=== PATIENT | male | born 1985 | race Hispanic/Latino ===

== ENCOUNTER 2022-04-29 02:47 | Emergency (ER) | payer MEDICAID ==
[2022-04-29] MEDS ORDERED: Sodium Chloride 0.9% 1000 ML 1,000 ML IV STA (03:28)
[2022-04-29] MEDS ORDERED: PROTONIX 40 MG IV IV ONE ×2 (03:28→03:36)
[2022-04-29] MEDS ORDERED: Zofran 4 MG/2 ML VIAL IV ONE (03:28)
[2022-04-29] MEDS ORDERED: MORPHINE SULFATE 4 MG INJ IV ONE (03:28)
--- NOTE | 2022-04-29 03:33 | ERPHSYRPT ---
- History of Present Illness Historian: insurance claims representative Exam Limitations: language barrier Patient Subjective Stated Complaint: ABD PAIN, NAUSEA, VOMITING, DIARRHEA, INDIGESTION (CHEST DISCOMFORT/FLUTTERING), DIZZINESS. Triage Nursing Assessment: Pt arrived via EMS, language barrier due to speaking Serbian, using a metal filer device. Pt c/o abd pain for a few weeks, but has gotten worse in the last few days. Pt has had nausea, vomiting and diarrhea, dizziness and his heart flutters when this all occurs. Pt states, "I was crying all night 2 nights ago from the pain". Abd soft and flat, active bs x4 quad, tender on palpation. Heart tones reg, lungs clear. Timing/Duration: week(s) (1-2 weeks) Activities at Onset: none Quality: cramping Abdominal Pain Onset Location: epigastric, periumbilical Pain Radiation: no radiation Severity of Pain-Max: moderate Severity of Pain-Current: moderate Modifying Factors: Improves With: nothing Associated Symptoms: loss of appetite, nausea, other (acid reflux) Previous symptoms: no prior history <BAKARI LEYVA - Last Filed: 04/29/22 06:49> <RICHARD RAYMOND - Last Filed: 04/29/22 08:02> - History of Present Illness Time Seen by Provider: 04/29/22 03:30 Physician History: c/o abd pain for a few weeks, but has gotten worse in the last few days. Pt has had nausea, vomiting and diarrhea, dizziness and his heart flutters when this all occurs. Pt states, "I was crying all night 2 nights ago from the pain". (AUTUMNLACEYBAKARI) Allergies/Adverse Reactions: No Known Drug Allergies Allergy (Unverified 04/29/22 03:15) Travel Risk - International Travel Have you traveled outside of the country in past 3 weeks: No - Coronavirus Screening Are you exhibiting any of the following symptoms?: Yes Symptoms: Vomiting/Diarrhea Close contact with a COVID-19 positive Pt in past 14-21 Days: No - Vaccine Status Have you recieved a Covid-19 vaccination: No <LACEY LEYVAYESH - Last Filed: 04/29/22 06:49> - Review of Systems Constitutional: No Fever, No Chills Eyes: No Symptoms Ears, Nose, & Throat: No Symptoms Respiratory: No Cough, No Dyspnea Cardiac: No Chest Pain, No Edema, No Syncope Abdominal/Gastrointestinal: Abdominal Pain, Nausea, Dysphagia, Appetite Changes, No Vomiting, No Diarrhea Genitourinary Symptoms: No Dysuria Musculoskeletal: No Back Pain, No Neck Pain Skin: No Rash Neurological: No Dizziness, No Focal Weakness, No Sensory Changes Psychological: No Symptoms Endocrine: No Symptoms All Other Systems: Reviewed and Negative <AUTUMN Filed: 04/29/22 06:49> - Past Medical History Pertinent Past Medical History: No - Past Surgical History Past Surgical History: No - Social History Smoking Status: Current every day smoker Exposure to second hand smoke: Yes <AUTUMN Filed: 04/29/22 06:49> - Physical Exam General Appearance: no apparent distress, alert Eye Exam: PERRL/EOMI, eyes nml inspection Ears, Nose, Throat Exam: normal ENT inspection, pharynx normal, moist mucous membranes Neck Exam: normal inspection, non-tender, supple, full range of motion Respiratory Exam: normal breath sounds, lungs clear, No respiratory distress Cardiovascular Exam: regular rate/rhythm, normal heart sounds Gastrointestinal/Abdomen Exam: soft, normal bowel sounds, tenderness (epigastric and periumbilical area), No mass Back Exam: normal inspection, normal range of motion, No CVA tenderness, No vertebral tenderness Extremity Exam: normal inspection, normal range of motion, pelvis stable Neurologic Exam: alert, oriented x 3, cooperative, normal mood/affect, nml cerebellar function, sensation nml, No motor deficits Skin Exam: normal color, warm, dry SpO2: 99 <AUTUMN Filed: 04/29/22 06:49> - Nursing Vital Signs Nursing Vital Signs: Initial Vital Signs Temperature 98.9 F 04/29/22 02:51 Pulse Rate 69 04/29/22 02:51 Respiratory Rate 16 04/29/22 02:51 Blood Pressure 140/99 04/29/22 02:51 O2 Sat by Pulse Oximetry 99 04/29/22 02:51 Pain Scale Pain Intensity 0 - Course Nursing assessment & vital signs reviewed: Yes - CT Exams Abdomen/Pelvis CT Interpretation: Tele-radiologist Report <AUTUMN Filed: 04/29/22 06:49> Ordered Tests: Active Orders 24 hr Category Date Time Status ABDOMEN AND PELVIS W/0 CONTRAS [CT] Stat Exams 04/29/22 03:29 Taken AMYLASE Stat Lab 04/29/22 03:47 Completed CBC W DIFF Stat Lab 04/29/22 03:47 Completed CMP Stat Lab 04/29/22 03:47 Completed LIPASE Stat Lab 04/29/22 03:47 Completed UA W/RFX CULTURE Stat Lab 04/29/22 03:48 Completed Urine Triage Profile Stat Lab 04/29/22 03:48 Completed Medication Summary Discontinued Medications Generic Name Dose Route Start Last Admin Trade Name Keonq PRN Reason Stop Dose Admin Sodium Chloride 1,000 mls @ 999 mls/hr 04/29/22 03:28 04/29/22 04:50 Sodium Chloride 0.9% 1000 Ml IV 04/29/22 04:28 Infused .Q1H1M STA Infusion Sodium Chloride Confirm 04/29/22 03:36 Sodium Chloride 0.9% 1000 Ml Administered 04/29/22 03:37 Dose 1,000 mls @ ud .ROUTE .STK-MED ONE Morphine Sulfate 4 mg 04/29/22 03:28 04/29/22 03:41 Morphine Sulfate 4 Mg/Ml Injection IV 04/29/22 03:29 4 mg STAT ONE Administration Morphine Sulfate Confirm 04/29/22 03:36 Morphine Sulfate 4 Mg/Ml Injection Administered 04/29/22 03:37 Dose 4 mg .ROUTE .STK-MED ONE Ondansetron HCl 4 mg 04/29/22 03:28 04/29/22 03:41 Ondansetron Hcl 4 Mg/2 Ml Vial IV 04/29/22 03:29 4 mg STAT ONE Administration Ondansetron HCl Confirm 04/29/22 03:36 Ondansetron Hcl 4 Mg/2 Ml Vial Administered 04/29/22 03:37 Dose 4 mg .ROUTE .STK-MED ONE Pantoprazole Sodium 40 mg 04/29/22 03:28 04/29/22 03:41 Pantoprazole 40 Mg Vial IV 04/29/22 03:29 40 mg STAT ONE Administration Pantoprazole Sodium Confirm 04/29/22 03:36 Pantoprazole 40 Mg Vial Administered 04/29/22 03:37 Dose 40 mg IV .STK-MED ONE Lab/Rad Data: Laboratory Result Diagrams 04/29/22 03:47 04/29/22 03:47 Laboratory Results 04/29/22 04/29/22 04/29/22 Range/Units 03:48 03:48 03:47 WBC (4.0-10.5) x10^3/uL RBC (4.1-5.6) x10^6/uL Hgb (12.5-18.0) g/dL Hct (42-50) % MCV (78-100) fL MCH (26-32) pg MCHC (32-36) g/dL RDW (11.5-14.0) % Plt Count (150-450) x10^3/uL MPV (7.5-11.0) fL Gran % (36.0-66.0) % Immature Gran % (Auto) (0.00-0.4) % Nucleat RBC Rel Count (0.00-0.1) % Eos # (Auto) (0-0.5) x10^3/uL Immature Gran # (Auto) (0.00-0.03) x10^3u/L Absolute Lymphs (auto) (1.0-4.6) x10^3/uL Absolute Monos (auto) (0.0-1.3) x10^3/uL Absolute Nucleated RBC (0.00-0.01) x10^3u/L Lymphocytes % (24.0-44.0) % Monocytes % (0.0-12.0) % Eosinophils % (0.00-5.0) % Basophils % (0.0-0.4) % Absolute Granulocytes (1.4-6.9) x10^3/uL Basophils # (0-0.4) x10^3/uL Sodium 138 (137-145) mmol/L Potassium 3.4 L (3.5-5.1) mmol/L Chloride 101 (98-107) mmol/L Carbon Dioxide 29 (22-30) mmol/L Anion Gap 11.0 (5-15) MEQ/L BUN 5 L (9-20) mg/dL Creatinine 0.73 (0.66-1.25) mg/dL Estimated GFR > 60.0 ML/MIN Glucose 97 (74-106) mg/dL Calcium 8.9 (8.4-10.2) mg/dL Total Bilirubin 1.10 (0.2-1.3) mg/dL AST 24 (17-59) U/L ALT 15 (0-50) U/L Alkaline Phosphatase 69 (38-126) U/L Serum Total Protein 7.6 (6.3-8.2) g/dL Albumin 4.5 (3.5-5.0) g/dL Amylase 83 (30-110) U/L Lipase 31 (23-300) U/L Urinalys Dipstick Clnc MAIN LAB Urine Color YELLOW (YELLOW) Urine Appearance CLEAR (CLEAR) Urine pH 7.0 (5-6) Ur Specific [place] 1.025 (1.005-1.025) POC Urine Protein Conf NEGATIVE (Negative) Urine Ketones NEGATIVE (NEGATIVE) Urine Nitrite NEGATIVE (NEGATIVE) Urine Bilirubin NEGATIVE (NEGATIVE) Urine Urobilinogen 0.2 (0-1) mg/dL Urine Leukocytes NEGATIVE (NEGATIVE) Urine WBC (Auto) 0-2 (0-5) /HPF Urine RBC (Auto) NONE (0-2) /HPF U Epithel Cells (Auto) NONE (FEW) /HPF Urine Bacteria (Auto) NONE (NEGATIVE) /HPF Urine RBC NEGATIVE (0-5) Emmett/ul Unidentified Crystals 2-5 (NEGATIVE) /HPF Urine Mucus (Auto) SLIGHT (NEGATIVE) /HPF Ur Culture Indicated? NO Urine Glucose NEGATIVE (NEGATIVE) mg/dL Urine Opiates Level NEGATIVE (NEGATIVE) Ur Methadone NEGATIVE (NEGATIVE) Urine Barbiturates NEGATIVE (NEGATIVE) Ur Phencyclidine (PCP) NEGATIVE (NEGATIVE) Urine Amphetamine POSITIVE (NEGATIVE) U Benzodiazepine Level NEGATIVE (NEGATIVE) Urine Cocaine NEGATIVE (NEGATIVE) Urine Marijuana (THC) NEGATIVE (NEGATIVE) 04/29/22 Range/Units 03:47 WBC 7.4 (4.0-10.5) x10^3/uL RBC 4.74 (4.1-5.6) x10^6/uL Hgb 14.6 (12.5-18.0) g/dL Hct 43.2 (42-50) % MCV 91.1 (78-100) fL MCH 30.8 (26-32) pg MCHC 33.8 (32-36) g/dL RDW 13.1 (11.5-14.0) % Plt Count 392 (150-450) x10^3/uL MPV 9.3 (7.5-11.0) fL Gran % 54.5 (36.0-66.0) % Immature Gran % (Auto) 0.4 (0.00-0.4) % Nucleat RBC Rel Count 0.0 (0.00-0.1) % Eos # (Auto) 0.23 (0-0.5) x10^3/uL Immature Gran # (Auto) 0.03 (0.00-0.03) x10^3u/L Absolute Lymphs (auto) 2.34 (1.0-4.6) x10^3/uL Absolute Monos (auto) 0.69 (0.0-1.3) x10^3/uL Absolute Nucleated RBC 0.00 (0.00-0.01) x10^3u/L Lymphocytes % 31.5 (24.0-44.0) % Monocytes % 9.3 (0.0-12.0) % Eosinophils % 3.1 (0.00-5.0) % Basophils % 1.2 (0.0-0.4) % Absolute Granulocytes 4.06 (1.4-6.9) x10^3/uL Basophils # 0.09 (0-0.4) x10^3/uL Sodium (137-145) mmol/L Potassium (3.5-5.1) mmol/L Chloride (98-107) mmol/L Carbon Dioxide (22-30) mmol/L Anion Gap (5-15) MEQ/L BUN (9-20) mg/dL Creatinine (0.66-1.25) mg/dL Estimated GFR ML/MIN Glucose (74-106) mg/dL Calcium (8.4-10.2) mg/dL Total Bilirubin (0.2-1.3) mg/dL AST (17-59) U/L ALT (0-50) U/L Alkaline Phosphatase (38-126) U/L Serum Total Protein (6.3-8.2) g/dL Albumin (3.5-5.0) g/dL Amylase (30-110) U/L Lipase (23-300) U/L Urinalys Dipstick Clnc Urine Color (YELLOW) Urine Appearance (CLEAR) Urine pH (5-6) Ur Specific [place] (1.005-1.025) POC Urine Protein Conf (Negative) Urine Ketones (NEGATIVE) Urine Nitrite (NEGATIVE) Urine Bilirubin (NEGATIVE) Urine Urobilinogen (0-1) mg/dL Urine Leukocytes (NEGATIVE) Urine WBC (Auto) (0-5) /HPF Urine RBC (Auto) (0-2) /HPF U Epithel Cells (Auto) (FEW) /HPF Urine Bacteria (Auto) (NEGATIVE) /HPF Urine RBC (0-5) Emmett/ul Unidentified Crystals (NEGATIVE) /HPF Urine Mucus (Auto) (NEGATIVE) /HPF Ur Culture Indicated? Urine Glucose (NEGATIVE) mg/dL Urine Opiates Level (NEGATIVE) Ur Methadone (NEGATIVE) Urine Barbiturates (NEGATIVE) Ur Phencyclidine (PCP) (NEGATIVE) Urine Amphetamine (NEGATIVE) U Benzodiazepine Level (NEGATIVE) Urine Cocaine (NEGATIVE) Urine Marijuana (THC) (NEGATIVE) - Progress Progress: improved, re-examined Counseled pt/family regarding: lab results, diagnosis, need for follow-up, rad results, smoking cessation <RICHARD RAYMOND - Last Filed: 04/29/22 08:02> - Progress Progress Note: 04/29/22 08:01 Patient is checked out to me at shift change from with pending CT abdomen pelvis. Patient presented with abdominal pain with nausea vomiting. Lab work grossly unremarkable for acute abdomen. CT abdomen pelvis is negative for any acute abdominal pelvic findings. Prescriptions has already been sent by . On my evaluation patient does not elicit any peritoneal signs. Recommended outpatient follow-up. Discussed signs symptoms of worsening needing return to ER which he seems understanding. Stable for discharge. (RICHARD RAYMOND) - Departure Departure Disposition: Home Critical Care Time: Yes Critical Care Time(excluding separately billable procedures): Critical 30-74 mins <BAKARI LEYVA - Last Filed: 04/29/22 06:49> <RICHARD RAYMOND - Last Filed: 04/29/22 08:02> - Departure Clinical Impression: Gastritis and duodenitis Abdominal pain Qualifiers: Abdominal location: epigastric Qualified Code(s): R10.13 - Epigastric pain Condition: Stable Referrals: DOCTOR,NO FAMILY [Primary Care Provider] - Follow up/PCP as directed Instructions: Severe Abdominal Pain, Adult (DC) Additional Instructions: Discharge/Care Plan LIBBY MULLIGAN was seen on 04/29/22 in the Emergency Room. The patient was counseled regarding Diagnosis,Lab results, Imaging studies, need for follow up and when to return to the Emergency Room. Prescriptions given: Discharge Note I have spoken with the patient and/or caregivers. I have explained the patient's condition, diagnosis and treatment plan based on the information available to me at this time. I have answered the patient's and/or caregiver's questions and addressed any concerns. The patient and/or caregivers have as good understanding of the patient's diagnosis, condition and treatment plan as can be expected at this point. The vital signs have been stable. The patient's condition is stable and appropriate for discharge from the emergency department. The patient will pursue further outpatient evaluation with the primary care physician or other designated or consulting physician as outlined in the discharge instructions. The patient and/or caregivers are agreeable to this plan of care and follow-up instructions have been explained in detail. The patient and/or caregivers have received these instruction. The patient/and or caregivers are aware that any significant change in condition or worsening of symptoms should prompt an immediate return to this or the closest emergency department or call 911. LIBBY MULLIGAN was seen on 04/29/22 n the Emergency Room. At that time you were treated for an emergent condition, during your visit Laboratory, Radiology and/or other procedures may have been ordered. It is very important that you follow-up with your Primary Care Physician NO FAMILY DOCTOR within the next 24-48 hours to review your Emergency Room visit and the final results of testing that was ordered. Some test results such as Urine Cultures, Blood Cultures, and other cultures if ordered will not be finalized for 24-48 hours. If you do not have a Primary Care Provider please call the medical records department at [phone] ext [phone] to obtain a copy of your results or you may sign into our patient portal to obtain these results by visiting us @ [email or web address] and completing the following steps: 1. Click on the Patient Portal link 2. Click the Patient Self Enrollment Link to complete the enrollment form and entering your 3. Once the enrollment form is completed you will receive an email with a temporary ID and password at the email address you provided. 4. Next choose a user name and password. Your user name must be at least 4 characters long and your password must be at least 4 characters long. 5. Choose a security question from the list and provide your answer to the question. If you already have signed into the Health Portal you may access your Health Care Information 07/02 by the following steps: 1. Login to our website @ [email or web address] 2. Enter your original user name and password. FAQS The [facility] Health Portal is an online tool that contains your Lab Results, Radiology Reports, Visit History, Discharge Instructions and Health Summary Lab and Radiology Results will not be available for 72 hours on the portal. The Portal is a secure site, passwords are encryted and URLs are re-written so they cannot be copied and pasted. You and authorized family members are the only ones who can access your Portal. Also there is a timeout feature that protects your information if you leave the Portal page open. If you have technical difficulty please use the Contact Us link on the page this will allow you to submit any questions you have regarding the Portal or you may contact the Medical Record Department at [phone]. Prescriptions: Famotidine 20 mg [Pepcid 20 MG] 20 mg PO BID #30 tablet PANTOPRAZOLE 40 mg Tablet [Protonix 40MG Tablet] 40 mg PO QPM #15 tab
[2022-04-29] MEDS ORDERED: Zofran 4 MG/2 ML VIAL ONE (03:36)
[2022-04-29] MEDS ORDERED: MORPHINE SULFATE 4 MG INJ ONE (03:36)
[2022-04-29] MEDS ORDERED: Sodium Chloride 0.9% 1000 ML 1,000 ML ONE (03:36)
[2022-04-29 03:52] LABS: Absolute Neutrophil Ct (ANC) 4.06 x10^3/uL (1.4-6.9); Basophil (Absolute #) 0.09 x10^3/uL (0-0.4); Eosinophil % 3.1 % (0.00-5.0); Eosinophil (Absolute #) 0.23 x10^3/uL (0-0.5); Hematocrit 43.2 % (42-50); Hemoglobin 14.6 g/dL (12.5-18.0); Lymphocyte (Absolute #) 2.34 x10^3/uL (1.0-4.6); Lymphocytes % 31.5 % (24.0-44.0); Mean Cell Volume 91.1 fL (78-100); Mean Corpuscular Hemoglobin 30.8 pg (26-32); Mean Corpuscular Hgb Concent. 33.8 g/dL (32-36); Mean Platelet Volume 9.3 fL (7.5-11.0); Monocyte (Absolute #) 0.69 x10^3/uL (0.0-1.3); Monocytes % 9.3 % (0.0-12.0); Neutrophil % 54.5 % (36.0-66.0); Platelet Count 392 x10^3/uL (150-450); Red Blood Count 4.74 x10^6/uL (4.1-5.6); Red Cell Distribution Width 13.1 % (11.5-14.0); White Blood Count 7.4 x10^3/uL (4.0-10.5)
[2022-04-29 03:59] LABS: ALBUMIN 4.5 g/dL (3.5-5.0); ALKALINE PHOSPHATASE 69 U/L (38-126); AMYLASE 83 U/L (30-110); BLOOD UREA NITROGEN 5 mg/dL (9-20); CHLORIDE 101 mmol/L (98-107); Calcium 8.9 mg/dL (8.4-10.2); Carbon Dioxide 29 mmol/L (22-30); Creatinine 1 0.73 mg/dL (0.66-1.25); EST GLOMERULAR FILTRATION RATE > 60.0 ML/MIN; Glucose 97 mg/dL (74-106); LIPASE 31 U/L (23-300); Potassium 3.4 mmol/L (3.5-5.1); SGOT/AST 24 U/L (17-59); SGPT/ALT 15 U/L (0-50); SODIUM 138 mmol/L (137-145); Total Protein 7.6 g/dL (6.3-8.2)
[2022-04-29 04:01] LABS: Appearance CLEAR (CLEAR); Bilirubin NEGATIVE (NEGATIVE); Glucose NEGATIVE (NEGATIVE); Ketones NEGATIVE (NEGATIVE); Protein,Urine Dip NEGATIVE (Negative); RBC NEGATIVE Ery/ul (0-5); Specific Gravity 1.025 (1.005-1.025)
[2022-04-29 04:02] LABS: Dipstick done @ ? MAIN LAB; Nitrite NEGATIVE (NEGATIVE); Urobilinogen 0.2 mg/dL (0-1)
[2022-04-29 04:09] LABS: Barbiturate,Urine NEGATIVE (NEGATIVE); Benzodiazepine,Urine NEGATIVE (NEGATIVE); Cocaine,Urine NEGATIVE (NEGATIVE); Methadone,Urine NEGATIVE (NEGATIVE); Opiate,Urine NEGATIVE (NEGATIVE); PCP,Urine NEGATIVE (NEGATIVE); THC,Urine NEGATIVE (NEGATIVE)
[2022-04-29 04:18] LABS: Mucus SLIGHT /HPF (NEGATIVE); WBC 0-2 /HPF (0-5)
[2022-04-29 04:25] LABS: Urine Cultured Indicated? NO
[2022-04-29 04:40] LABS: Amphetamine,Urine POSITIVE (NEGATIVE)
[2022-04-29 07:10] VITALS: O2SAT 100
[2022-04-29 08:22] VITALS: BP 126/91; PULSE 57
--- NOTE | 2022-04-29 08:50 | XRAY ---
Indication: Periumbilical pain. Nausea, vomiting, diarrhea. Multiple contiguous axial images obtained through the abdomen and pelvis without contrast. Comparison: None Lung bases clear. Heart not enlarged. Noncontrasted stomach and bowel loops appear nonobstructed with normal appendix. No free fluid/air. Remaining liver, gallbladder, pancreas, spleen, adrenal glands, kidneys, ureters, bladder, and aorta are unremarkable for noncontrast exam. Osseous structures intact. No ventral or inguinal hernias. Impression: CT abdomen/pelvis without contrast exam is negative. Comment: Preliminary interpretation made by [facility]. No critical discrepancy.
== END 2022-04-29 08:49 | disposition home or self-care (01) ==
LOC: ED 02:47
DX: K29.70 Gastritis, unspecified, without bleeding (principal); K29.80 Duodenitis without bleeding; R11.2 Nausea with vomiting, unspecified; R19.7 Diarrhea, unspecified; R42 Dizziness and giddiness; R10.13 Epigastric pain
CPT/HCPCS: 36000; 36415; 74176; 80053; 80307; 81015; 82150; 83690; 85025; 93005; 96360; 96374; 99284; 99291; J2270; J2405

== ENCOUNTER 2022-07-01 10:19 | Emergency (ER) | payer SELFPAY ==
[2022-07-01] MEDS ORDERED: Sodium Chloride 0.9% 1000 ML 1,000 ML IV STA (11:18)
[2022-07-01] MEDS ORDERED: Zofran 4 MG/2 ML VIAL IV ONE (11:18)
[2022-07-01] MEDS ORDERED: Sodium Chloride 0.9% 1000 ML 1,000 ML ONE (11:20)
[2022-07-01] MEDS ORDERED: Zofran 4 MG/2 ML VIAL ONE (11:20)
[2022-07-01 11:26] LABS: Absolute Neutrophil Ct (ANC) 2.04 x10^3/uL (1.4-6.9); Basophil (Absolute #) 0.07 x10^3/uL (0-0.4); Eosinophil % 6.6 % (0.00-5.0); Eosinophil (Absolute #) 0.32 x10^3/uL (0-0.5); Hemoglobin 13.8 g/dL (12.5-18.0); Lymphocyte (Absolute #) 1.76 x10^3/uL (1.0-4.6); Lymphocytes % 36.1 % (24.0-44.0); Mean Cell Volume 90.7 fL (78-100); Mean Corpuscular Hemoglobin 30.5 pg (26-32); Mean Corpuscular Hgb Concent. 33.7 g/dL (32-36); Mean Platelet Volume 9.1 fL (7.5-11.0); Monocyte (Absolute #) 0.66 x10^3/uL (0.0-1.3); Monocytes % 13.6 % (0.0-12.0); Neutrophil % 41.9 % (36.0-66.0); Platelet Count 387 x10^3/uL (150-450); Red Blood Count 4.52 x10^6/uL (4.1-5.6); Red Cell Distribution Width 12.8 % (11.5-14.0); White Blood Count 4.9 x10^3/uL (4.0-10.5)
[2022-07-01 11:27] VITALS: O2SAT 100
[2022-07-01 11:33] LABS: ALKALINE PHOSPHATASE 66 U/L (38-126); AMYLASE 74 U/L (30-110); ANION GAP 8.8 MEQ/L (5-15); BLOOD UREA NITROGEN 16 mg/dL (9-20); CHLORIDE 106 mmol/L (98-107); Calcium 8.7 mg/dL (8.4-10.2); Carbon Dioxide 25 mmol/L (22-30); Creatinine 1 0.69 mg/dL (0.66-1.25); EST GLOMERULAR FILTRATION RATE > 60.0 ML/MIN; Glucose 128 mg/dL (74-106); LIPASE 58 U/L (23-300); Potassium 3.1 mmol/L (3.5-5.1); SGOT/AST 36 U/L (17-59); SGPT/ALT 21 U/L (0-50); SODIUM 137 mmol/L (137-145)
[2022-07-01 11:50] LABS: Group A Strep NOT DETECTED (NEGATIVE)
--- NOTE | 2022-07-01 11:55 | XRAY ---
Indication: Right upper quadrant pain and fatigue. Multiple contiguous axial images obtained through the abdomen and pelvis without contrast. Comparison: April 29, 2022 Lung bases remain clear. Heart not enlarged. Noncontrasted stomach and bowel loops nonobstructed with normal appendix. No free fluid/air. Remaining liver, gallbladder, pancreas, spleen, adrenal glands, kidneys, ureters, bladder, and aorta are unremarkable for noncontrast exam. Osseous structures intact. Impression: Continued negative CT abdomen/pelvis without contrast exam.
[2022-07-01 12:04] LABS: INFLUENZA A NEGATIVE (NEGATIVE); INFLUENZA B NEGATIVE (NEGATIVE); RESPIRATORY SYNCTIAL VIRUS NEGATIVE (Negative); SARS-CoV-2 Xpert Express NEGATIVE (NEGATIVE)
[2022-07-01 12:08] VITALS: BP 112/81; PULSE 63
[2022-07-01] MEDS ORDERED: TORAdol 30 mg Injection IV ONE (12:20)
[2022-07-01 12:22] LABS: Mucus SLIGHT /HPF (NEGATIVE); RBC 0-2 /HPF (0-2); WBC 0-2 /HPF (0-5)
[2022-07-01] MEDS ORDERED: GI COCKTAIL 45 ML (Maalox/Lidocaine) PO ONE (12:22)
[2022-07-01] MEDS ORDERED: TORAdol 30 mg Injection ONE (12:23)
[2022-07-01] MEDS ORDERED: MAALOX ES 30 ML UNIT DOSE ONE (12:23)
[2022-07-01] MEDS ORDERED: XYLOCAINE VISCOUS 2% 15 ML CUP ONE (12:23)
[2022-07-01 12:25] LABS: Appearance CLEAR (CLEAR); Bilirubin SMALL (NEGATIVE); Dipstick done @ ? MAIN LAB; Glucose NEGATIVE (NEGATIVE); Ketones NEGATIVE (NEGATIVE); Nitrite NEGATIVE (NEGATIVE); Protein,Urine Dip TRACE (Negative); RBC NEGATIVE Ery/ul (0-5); Specific Gravity >=1.030 (1.005-1.025); Urobilinogen 1 mg/dL (0-1)
[2022-07-01 12:27] LABS: Urine Cultured Indicated? NO
--- NOTE | 2022-07-01 12:35 | ERPHSYRPT ---
- History of Present Illness Time Seen by Provider: 07/01/22 10:54 Historian: patient Exam Limitations: language barrier Patient Subjective Stated Complaint: Pt c/o of being sick for the past 6 days, states that his abdomen has been hurting and has been nauseous, loss of a ppetite, burning in esophagus like acid reflux, fever a couple of days ago, all over body aches Triage Nursing Assessment: Pt brought self to the ER, vitals wnl, rates overall pain as 8/10, pt was here in April for most of the same symptoms, pt does not have a family doctor and has asked help in finding one, abdominal pain with palpatation, appears weak, pulses normal, skin n/w/d Physician History: 36-year-old Persian-speaking male presented in the ER with chief complaint of abdominal pain for the last 1 week with progressive worsening. Reports pain mostly in the upper abdomen with associated nausea, dull burning nature pain with nonradiating. Denies any fever or chills. Patient reports having similar symptoms almost couple months ago. Not a good historian and history is limited secondary to language barrier and used deaf interpreter for that. Timing/Duration: week(s) (1), gradual onset, worse Activities at Onset: rest Quality: burning Abdominal Pain Onset Location: LUQ, RLQ, LLQ, epigastric Pain Radiation: no radiation Severity of Pain-Max: moderate Severity of Pain-Current: moderate Modifying Factors: Worsens With: movement, palpation Associated Symptoms: nausea, No vomiting Previous symptoms: same symptoms as today Allergies/Adverse Reactions: No Known Drug Allergies Allergy (Unverified 07/01/22 10:56) Immunizations Up to Date: (unknown) Travel Risk - International Travel Have you traveled outside of the country in past 3 weeks: No - Coronavirus Screening Are you exhibiting any of the following symptoms?: No Symptoms: Fever, Vomiting/Diarrhea - Vaccine Status Have you recieved a Covid-19 vaccination: No - Review of Systems Constitutional: No Symptoms Eyes: No Symptoms Ears, Nose, & Throat: No Symptoms Respiratory: No Symptoms Cardiac: No Symptoms Abdominal/Gastrointestinal: Abdominal Pain, Nausea Genitourinary Symptoms: No Symptoms Musculoskeletal: No Symptoms Skin: No Symptoms Neurological: No Symptoms Psychological: No Symptoms Endocrine: No Symptoms Hematologic/Lymphatic: No Symptoms - Past Medical History Pertinent Past Medical History: No - Past Surgical History Past Surgical History: No - Social History Smoking Status: Current every day smoker Exposure to second hand smoke: Yes Drug Use: none Patient Lives Alone: No - Nursing Vital Signs Nursing Vital Signs: Initial Vital Signs Temperature 97.9 F 07/01/22 10:31 Pulse Rate 82 07/01/22 10:31 Blood Pressure 101/75 07/01/22 10:31 O2 Sat by Pulse Oximetry 99 07/01/22 10:31 Pain Scale Pain Intensity 4 - Physical Exam General Appearance: no apparent distress, alert Eye Exam: PERRL/EOMI Ears, Nose, Throat Exam: normal ENT inspection, pharynx normal Neck Exam: normal inspection, non-tender, supple, full range of motion Respiratory Exam: normal breath sounds, lungs clear Cardiovascular Exam: regular rate/rhythm, normal heart sounds Gastrointestinal/Abdomen Exam: soft, normal bowel sounds, tenderness (Upper abdomen), No guarding Back Exam: normal inspection, normal range of motion Extremity Exam: normal inspection, normal range of motion Neurologic Exam: alert, oriented x 3, cooperative Skin Exam: normal color SpO2 Interpretation: normal SpO2: 100 O2 Delivery: Room Air Ordered Tests: Active Orders 24 hr Category Date Time Status Clean Catch Urine Specimen STAT Care 07/01/22 12:15 Completed IV Insertion STAT Care 07/01/22 11:18 Completed NPO (ED) STAT Care 07/01/22 11:18 Completed ABDOMEN AND PELVIS W/0 CONTRAS [CT] Stat Exams 07/01/22 11:18 Completed AMYLASE Stat Lab 07/01/22 11:24 Completed CBC W DIFF Stat Lab 07/01/22 11:24 Completed CMP Stat Lab 07/01/22 11:24 Completed LIPASE Stat Lab 07/01/22 11:24 Completed UA W/RFX CULTURE Stat Lab 07/01/22 12:08 Completed Urine Triage Profile Stat Lab 07/01/22 12:16 Completed Medication Summary Discontinued Medications Generic Name Dose Route Start Last Admin Trade Name Freq PRN Reason Stop Dose Admin Al Hydrox/Mg Hydrox/Simethicone Confirm 07/01/22 12:23 Mag Hydrox/Al Hydrox/Simeth 30 Ml Udcup Administered 07/01/22 12:24 Dose 30 ml .ROUTE .STK-MED ONE Sodium Chloride 1,000 mls @ 999 mls/hr 07/01/22 11:18 07/01/22 12:30 Sodium Chloride 0.9% 1000 Ml IV 07/01/22 12:18 Infused .Q1H1M STA Infusion Sodium Chloride Confirm 07/01/22 11:20 Sodium Chloride 0.9% 1000 Ml Administered 07/01/22 11:21 Dose 1,000 mls @ ud .ROUTE .STK-MED ONE Ketorolac Tromethamine 30 mg 07/01/22 12:20 07/01/22 12:24 Ketorolac Tromethamine 30 Mg/Ml Inj IV 07/01/22 12:21 30 mg STAT ONE Administration Ketorolac Tromethamine Confirm 07/01/22 12:23 Ketorolac Tromethamine 30 Mg/Ml Inj Administered 07/01/22 12:24 Dose 30 mg .ROUTE .STK-MED ONE Lidocaine HCl Confirm 07/01/22 12:23 Lidocaine Hcl 2% Viscous 15 Ml Udcup Administered 07/01/22 12:24 Dose 15 ml .ROUTE .STK-MED ONE Magnesium Hydroxide 45 ml 07/01/22 12:22 07/01/22 12:25 Mag Hydrx/Alum Hyd/Simeth/Lido 45 Ml Bottle PO 07/01/22 12:23 45 ml STAT ONE Administration Ondansetron HCl 4 mg 07/01/22 11:18 07/01/22 11:23 Ondansetron Hcl 4 Mg/2 Ml Vial IV 07/01/22 11:19 4 mg STAT ONE Administration Ondansetron HCl Confirm 07/01/22 11:20 Ondansetron Hcl 4 Mg/2 Ml Vial Administered 07/01/22 11:21 Dose 4 mg .ROUTE .STK-MED ONE Lab/Rad Data: Laboratory Result Diagrams 07/01/22 11:24 07/01/22 11:24 Laboratory Results 07/01/22 07/01/22 07/01/22 Range/Units 12:16 12:08 11:24 WBC (4.0-10.5) x10^3/uL RBC (4.1-5.6) x10^6/uL Hgb (12.5-18.0) g/dL Hct (42-50) % MCV (78-100) fL MCH (26-32) pg MCHC (32-36) g/dL RDW (11.5-14.0) % Plt Count (150-450) x10^3/uL MPV (7.5-11.0) fL Gran % (36.0-66.0) % Immature Gran % (Auto) (0.00-0.4) % Nucleat RBC Rel Count (0.00-0.1) % Eos # (Auto) (0-0.5) x10^3/uL Immature Gran # (Auto) (0.00-0.03) x10^3u/L Absolute Lymphs (auto) (1.0-4.6) x10^3/uL Absolute Monos (auto) (0.0-1.3) x10^3/uL Absolute Nucleated RBC (0.00-0.01) x10^3u/L Lymphocytes % (24.0-44.0) % Monocytes % (0.0-12.0) % Eosinophils % (0.00-5.0) % Basophils % (0.0-0.4) % Absolute Granulocytes (1.4-6.9) x10^3/uL Basophils # (0-0.4) x10^3/uL Sodium 137 (137-145) mmol/L Potassium 3.1 L (3.5-5.1) mmol/L Chloride 106 (98-107) mmol/L Carbon Dioxide 25 (22-30) mmol/L Anion Gap 8.8 (5-15) MEQ/L BUN 16 (9-20) mg/dL Creatinine 0.69 (0.66-1.25) mg/dL Estimated GFR > 60.0 ML/MIN Glucose 128 H (74-106) mg/dL Calcium 8.7 (8.4-10.2) mg/dL Total Bilirubin 0.60 (0.2-1.3) mg/dL AST 36 (17-59) U/L ALT 21 (0-50) U/L Alkaline Phosphatase 66 (38-126) U/L Serum Total Protein 7.0 (6.3-8.2) g/dL Albumin 4.0 (3.5-5.0) g/dL Amylase 74 (30-110) U/L Lipase 58 (23-300) U/L Urinalys Dipstick Clnc MAIN LAB Urine Color YELLOW (YELLOW) Urine Appearance CLEAR (CLEAR) Urine pH 6.0 (5-6) Ur Specific [place] >=1.030 A (1.005-1.025) POC Urine Protein Conf TRACE A (Negative) Urine Ketones NEGATIVE (NEGATIVE) Urine Nitrite NEGATIVE (NEGATIVE) Urine Bilirubin SMALL A (NEGATIVE) Urine Urobilinogen 1 A (0-1) mg/dL Urine Leukocytes NEGATIVE (NEGATIVE) Urine WBC (Auto) 0-2 (0-5) /HPF Urine RBC (Auto) 0-2 (0-2) /HPF U Epithel Cells (Auto) Not Reportable Urine Bacteria (Auto) Not Reportable Urine RBC NEGATIVE (0-5) Memett/ul Urine Mucus (Auto) SLIGHT A (NEGATIVE) /HPF Ur Culture Indicated? NO Urine Glucose NEGATIVE (NEGATIVE) mg/dL Urine Opiates Level NEGATIVE (NEGATIVE) Ur Methadone NEGATIVE (NEGATIVE) Urine Barbiturates NEGATIVE (NEGATIVE) Ur Phencyclidine (PCP) NEGATIVE (NEGATIVE) Urine Amphetamine POSITIVE (NEGATIVE) U Benzodiazepine Level NEGATIVE (NEGATIVE) Urine Cocaine NEGATIVE (NEGATIVE) Urine Marijuana (THC) NEGATIVE (NEGATIVE) Influenza Type A Ag (NEGATIVE) Influenza Type B Ag (NEGATIVE) RSV (PCR) (Negative) SARS-CoV-2 (PCR) (NEGATIVE) Group A Strep Antibody (NEGATIVE) 07/01/22 07/01/22 Range/Units 11:24 11:24 WBC 4.9 (4.0-10.5) x10^3/uL RBC 4.52 (4.1-5.6) x10^6/uL Hgb 13.8 (12.5-18.0) g/dL Hct 41.0 L (42-50) % MCV 90.7 (78-100) fL MCH 30.5 (26-32) pg MCHC 33.7 (32-36) g/dL RDW 12.8 (11.5-14.0) % Plt Count 387 (150-450) x10^3/uL MPV 9.1 (7.5-11.0) fL Gran % 41.9 (36.0-66.0) % Immature Gran % (Auto) 0.4 (0.00-0.4) % Nucleat RBC Rel Count 0.0 (0.00-0.1) % Eos # (Auto) 0.32 (0-0.5) x10^3/uL Immature Gran # (Auto) 0.02 (0.00-0.03) x10^3u/L Absolute Lymphs (auto) 1.76 (1.0-4.6) x10^3/uL Absolute Monos (auto) 0.66 (0.0-1.3) x10^3/uL Absolute Nucleated RBC 0.00 (0.00-0.01) x10^3u/L Lymphocytes % 36.1 (24.0-44.0) % Monocytes % 13.6 H (0.0-12.0) % Eosinophils % 6.6 H (0.00-5.0) % Basophils % 1.4 (0.0-0.4) % Absolute Granulocytes 2.04 (1.4-6.9) x10^3/uL Basophils # 0.07 (0-0.4) x10^3/uL Sodium (137-145) mmol/L Potassium (3.5-5.1) mmol/L Chloride (98-107) mmol/L Carbon Dioxide (22-30) mmol/L Anion Gap (5-15) MEQ/L BUN (9-20) mg/dL Creatinine (0.66-1.25) mg/dL Estimated GFR ML/MIN Glucose (74-106) mg/dL Calcium (8.4-10.2) mg/dL Total Bilirubin (0.2-1.3) mg/dL AST (17-59) U/L ALT (0-50) U/L Alkaline Phosphatase (38-126) U/L Serum Total Protein (6.3-8.2) g/dL Albumin (3.5-5.0) g/dL Amylase (30-110) U/L Lipase (23-300) U/L Urinalys Dipstick Clnc Urine Color (YELLOW) Urine Appearance (CLEAR) Urine pH (5-6) Ur Specific [place] (1.005-1.025) POC Urine Protein Conf (Negative) Urine Ketones (NEGATIVE) Urine Nitrite (NEGATIVE) Urine Bilirubin (NEGATIVE) Urine Urobilinogen (0-1) mg/dL Urine Leukocytes (NEGATIVE) Urine WBC (Auto) (0-5) /HPF Urine RBC (Auto) (0-2) /HPF U Epithel Cells (Auto) Urine Bacteria (Auto) Urine RBC (0-5) Emmett/ul Urine Mucus (Auto) (NEGATIVE) /HPF Ur Culture Indicated? Urine Glucose (NEGATIVE) mg/dL Urine Opiates Level (NEGATIVE) Ur Methadone (NEGATIVE) Urine Barbiturates (NEGATIVE) Ur Phencyclidine (PCP) (NEGATIVE) Urine Amphetamine (NEGATIVE) U Benzodiazepine Level (NEGATIVE) Urine Cocaine (NEGATIVE) Urine Marijuana (THC) (NEGATIVE) Influenza Type A Ag NEGATIVE (NEGATIVE) Influenza Type B Ag NEGATIVE (NEGATIVE) RSV (PCR) NEGATIVE (Negative) SARS-CoV-2 (PCR) NEGATIVE (NEGATIVE) Group A Strep Antibody NOT DETECTED (NEGATIVE) - Progress Progress: improved Progress Note: 07/01/22 12:33 Is given fluids and Toradol along with Zofran for symptomatic relief. Also given GI cocktail. Patient feeling better on reevaluation. Normal white count, mildly low potassium for which he is will be given replacement. Unremarkable chemistries otherwise. No UTI. Negative COVID flu RSV/strep. CT abdomen pelvis negative for any acute intra-abdominal findings. I believe his symptoms could be secondary to acid reflux, patient has not been taking Protonix, will give a prescription again and have him outpatient follow-up. Discussed signs symptoms of worsening needing return to ER which he seems understanding. Stable for discharge. Counseled pt/family regarding: lab results, diagnosis, need for follow-up, rad results - Departure Departure Disposition: Home Clinical Impression: Upper abdominal pain, GERD with esophagitis Condition: Stable Critical Care Time: No Referrals: DOCTOR,NO FAMILY [Primary Care Provider] - Follow up/PCP as directed REGGIE LIU MD [ACTIVE STAFF] - Follow Up with PCP/3 days Instructions: Acid Reflux and GERD in Adults (DC), Severe Abdominal Pain, Adult (DC) Additional Instructions: Do not take ibuprofen but Tylenol only as needed for pain. Do not smoke. Follow-up with your primary care for reevaluation. Return to ER for worsening abdominal pain, intractable vomiting, fever chills etc. Prescriptions: Sucralfate 1 gm [Carafate 1 GM] 1 g PO ACHS #20 tablet PANTOPRAZOLE 40 mg Tablet [Protonix 40MG Tablet] 40 mg PO QAM #30 tab
[2022-07-01 13:00] LABS: Barbiturate,Urine NEGATIVE (NEGATIVE); Benzodiazepine,Urine NEGATIVE (NEGATIVE); Cocaine,Urine NEGATIVE (NEGATIVE); Methadone,Urine NEGATIVE (NEGATIVE); Opiate,Urine NEGATIVE (NEGATIVE); PCP,Urine NEGATIVE (NEGATIVE); THC,Urine NEGATIVE (NEGATIVE)
[2022-07-01 14:26] LABS: Amphetamine,Urine POSITIVE (NEGATIVE)
== END 2022-07-01 12:56 | disposition home or self-care (01) ==
LOC: ED 10:19
DX: K21.00 Gastro-esophageal reflux disease with esophagitis, without bleeding (principal); R10.10 Upper abdominal pain, unspecified; R11.0 Nausea; Z28.310 Unvaccinated for COVID-19; Z72.0 Tobacco use
CPT/HCPCS: 0241U; 36000; 36415; 74176; 80053; 80307; 81015; 82150; 83690; 85025; 87651; 96360; 96374; 96375; 99284; J1885; J2405; A9270-GY

== ENCOUNTER 2022-07-17 23:28 | Emergency (ER) | payer SELFPAY ==
[2022-07-18] MEDS ORDERED: Sodium Chloride 0.9% 1000 ML 1,000 ML IV STA (00:01)
[2022-07-18] MEDS ORDERED: Zofran 4 MG/2 ML VIAL IV ONE (00:01)
[2022-07-18] MEDS ORDERED: PROTONIX 40 MG IV IV ONE ×2 (00:01→00:21)
[2022-07-18] MEDS ORDERED: Zofran 4 MG/2 ML VIAL ONE (00:20)
[2022-07-18] MEDS ORDERED: Sodium Chloride 0.9% 1000 ML 1,000 ML ONE (00:21)
[2022-07-18 00:29] LABS: Absolute Neutrophil Ct (ANC) 6.24 x10^3/uL (1.4-6.9); Basophil (Absolute #) 0.11 x10^3/uL (0-0.4); Eosinophil (Absolute #) 0.18 x10^3/uL (0-0.5); Hematocrit 44.3 % (42-50); Hemoglobin 14.8 g/dL (12.5-18.0); Lymphocyte (Absolute #) 1.78 x10^3/uL (1.0-4.6); Lymphocytes % 20.1 % (24.0-44.0); Mean Cell Volume 90.2 fL (78-100); Mean Corpuscular Hemoglobin 30.1 pg (26-32); Mean Corpuscular Hgb Concent. 33.4 g/dL (32-36); Mean Platelet Volume 9.4 fL (7.5-11.0); Monocyte (Absolute #) 0.51 x10^3/uL (0.0-1.3); Monocytes % 5.8 % (0.0-12.0); Neutrophil % 70.7 % (36.0-66.0); Platelet Count 416 x10^3/uL (150-450); Red Blood Count 4.91 x10^6/uL (4.1-5.6); Red Cell Distribution Width 12.1 % (11.5-14.0); White Blood Count 8.8 x10^3/uL (4.0-10.5)
--- NOTE | 2022-07-18 00:35 | ERPHSYRPT ---
- History of Present Illness Time Seen by Provider: 07/17/22 23:48 Source: patient Exam Limitations: language barrier Patient Subjective Stated Complaint: pt c/o abd pain and chest pain related to witchcraft Triage Nursing Assessment: . Physician History: 36-year-old male with history of chronic abdominal pain presented in the ER with chief complaint of abdominal pain with some chest pain. Patient reports she has other people's who are doing some things to him which she relates to witchcraft and whenever they say particular numbers he started to have abdominal pain, chest pain. He denies use of drugs or alcohol. Patient reports this has been going on for the last couple of years and wants to file a complaint with police department about some people around him. Denies any suicidal or homicidal Nations. Patient keeps switching from 1 topic to another and is a poor historian. Building Maintenance Technician is used though. Timing/Duration: week(s), intermittent, worse Severity: moderate Modifying Factors: Improves With: other Associated Symptoms: abdominal pain, heartburn, chest pain, No vomiting, No shortness of breath, No diaphoresis, No cough, No headaches, No loss of appetite, No malaise, No syncope, No seizure, No weakness Allergies/Adverse Reactions: No Known Drug Allergies Allergy (Unverified 07/01/22 10:56) Hx Tetanus, Diphtheria Vaccination/Date Given: (uk) Immunizations Up to Date: (uk) Travel Risk - International Travel Have you traveled outside of the country in past 3 weeks: No - Coronavirus Screening Are you exhibiting any of the following symptoms?: No Close contact with a COVID-19 positive Pt in past 14-21 Days: No - Vaccine Status Have you recieved a Covid-19 vaccination: No - Review of Systems Constitutional: No Symptoms Eyes: No Symptoms Ears, Nose, & Throat: No Symptoms Respiratory: No Symptoms Cardiac: Chest Pain Abdominal/Gastrointestinal: Abdominal Pain Genitourinary Symptoms: Dysuria Musculoskeletal: Myalgias Neurological: No Symptoms Psychological: Anxiety Endocrine: No Symptoms Hematologic/Lymphatic: No Symptoms Immunological/Allergic: No Symptoms - Past Medical History Pertinent Past Medical History: Yes Respiratory History: Asthma - Past Surgical History Past Surgical History: No - Social History Smoking Status: Current every day smoker Exposure to second hand smoke: Yes Drug Use: none Patient Lives Alone: No - Nursing Vital Signs Nursing Vital Signs: Initial Vital Signs Temperature 97.2 F 12/31/22 23:31 Pulse Rate 74 07/17/22 23:31 Respiratory Rate 16 07/17/22 23:31 Blood Pressure 142/105 07/17/22 23:31 O2 Sat by Pulse Oximetry 99 07/17/22 23:31 Pain Scale Pain Intensity 5 - Physical Exam General Appearance: no apparent distress, alert, anxiety Eye Exam: PERRL/EOMI, eyes nml inspection Ears, Nose, Throat Exam: normal ENT inspection, TMs normal, pharynx normal, moist mucous membranes Neck Exam: normal inspection, non-tender, supple, full range of motion Respiratory Exam: normal breath sounds, lungs clear Cardiovascular Exam: regular rate/rhythm, normal heart sounds Gastrointestinal/Abdomen Exam: soft, normal bowel sounds, No tenderness Back Exam: normal inspection, normal range of motion Extremity Exam: normal inspection, normal range of motion Neurologic Exam: alert, oriented x 3, cooperative, program manager slp II-XII nml as tested, sensation nml, No normal mood/affect, No motor deficits Skin Exam: normal color SpO2 Interpretation: normal SpO2: 99 O2 Delivery: Room Air - Course EKG Interpreted by Me: RATE (68), Sinus Rhythm, NORMAL AXIS, NORMAL INTERVALS Ordered Tests: Active Orders 24 hr Category Date Time Status EKG-ER Only STAT Care 07/18/22 00:01 Active IV Insertion STAT Care 07/18/22 00:01 Active NPO (ED) STAT Care 07/18/22 00:01 Active CHEST 1 VIEW (PORTABLE) Stat Exams 07/18/22 00:01 Taken CBC W DIFF Stat Lab 07/18/22 00:20 Completed CMP Stat Lab 07/18/22 00:20 Completed ETHYL ALCOHOL Stat Lab 07/18/22 00:41 Ordered LIPASE Stat Lab 07/18/22 00:20 Completed Lactic Acid Stat Lab 07/18/22 00:10 Completed TROPONIN Q4H Lab 07/18/22 00:20 Completed TROPONIN Q4H Lab 07/18/22 04:15 Ordered TROPONIN Q4H Lab 07/18/22 08:15 Ordered UA W/RFX CULTURE Stat Lab 07/18/22 00:40 Completed Urine Triage Profile Stat Lab 07/18/22 00:39 Received Medication Summary Discontinued Medications Generic Name Dose Route Start Last Admin Trade Name Freq PRN Reason Stop Dose Admin Sodium Chloride 1,000 mls @ 999 mls/hr 07/18/22 00:01 07/18/22 00:24 Sodium Chloride 0.9% 1000 Ml IV 07/18/22 01:01 999 mls/hr .Q1H1M STA Administration Sodium Chloride Confirm 07/18/22 00:21 Sodium Chloride 0.9% 1000 Ml Administered 07/18/22 00:22 Dose 1,000 mls @ ud .ROUTE .STK-MED ONE Ondansetron HCl 4 mg 07/18/22 00:01 07/18/22 00:24 Ondansetron Hcl 4 Mg/2 Ml Vial IV 07/18/22 00:02 4 mg STAT ONE Administration Ondansetron HCl Confirm 07/18/22 00:20 Ondansetron Hcl 4 Mg/2 Ml Vial Administered 07/18/22 00:21 Dose 4 mg .ROUTE .STK-MED ONE Pantoprazole Sodium 40 mg 07/18/22 00:01 07/18/22 00:24 Pantoprazole 40 Mg Vial IV 07/18/22 00:02 40 mg STAT ONE Administration Pantoprazole Sodium Confirm 07/18/22 00:21 Pantoprazole 40 Mg Vial Administered 07/18/22 00:22 Dose 40 mg IV .STK-MED ONE Lab/Rad Data: Laboratory Result Diagrams 07/18/22 00:20 07/18/22 00:20 Laboratory Results 07/18/22 07/18/22 07/18/22 Range/Units 00:41 00:40 00:20 WBC (4.0-10.5) x10^3/uL RBC (4.1-5.6) x10^6/uL Hgb (12.5-18.0) g/dL Hct (42-50) % MCV (78-100) fL MCH (26-32) pg MCHC (32-36) g/dL RDW (11.5-14.0) % Plt Count (150-450) x10^3/uL MPV (7.5-11.0) fL Gran % (36.0-66.0) % Immature Gran % (Auto) (0.00-0.4) % Nucleat RBC Rel Count (0.00-0.1) % Eos # (Auto) (0-0.5) x10^3/uL Immature Gran # (Auto) (0.00-0.03) x10^3u/L Absolute Lymphs (auto) (1.0-4.6) x10^3/uL Absolute Monos (auto) (0.0-1.3) x10^3/uL Absolute Nucleated RBC (0.00-0.01) x10^3u/L Lymphocytes % (24.0-44.0) % Monocytes % (0.0-12.0) % Eosinophils % (0.00-5.0) % Basophils % (0.0-0.4) % Absolute Granulocytes (1.4-6.9) x10^3/uL Basophils # (0-0.4) x10^3/uL Sodium (137-145) mmol/L Potassium (3.5-5.1) mmol/L Chloride (98-107) mmol/L Carbon Dioxide (22-30) mmol/L Anion Gap (5-15) MEQ/L BUN (9-20) mg/dL Creatinine (0.66-1.25) mg/dL Estimated GFR ML/MIN Glucose (74-106) mg/dL Lactic Acid (0.4-2.0) Calcium (8.4-10.2) mg/dL Total Bilirubin (0.2-1.3) mg/dL AST (17-59) U/L ALT (0-50) U/L Alkaline Phosphatase (38-126) U/L Troponin I < 0.012 (0.000-0.034) ng/mL Serum Total Protein (6.3-8.2) g/dL Albumin (3.5-5.0) g/dL Lipase (23-300) U/L Urinalys Dipstick Clnc MAIN LAB Urine Color YELLOW (YELLOW) Urine Appearance CLEAR (CLEAR) Urine pH 5.5 (5-6) Ur Specific [place] >=1.030 A (1.005-1.025) POC Urine Protein Conf 30 A (Negative) Urine Ketones TRACE A (NEGATIVE) Urine Nitrite NEGATIVE (NEGATIVE) Urine Bilirubin SMALL A (NEGATIVE) Urine Urobilinogen 2 A (0-1) mg/dL Urine Leukocytes NEGATIVE (NEGATIVE) Urine WBC (Auto) NONE (0-5) /HPF Urine RBC (Auto) NONE (0-2) /HPF U Epithel Cells (Auto) NONE (FEW) /HPF Urine Bacteria (Auto) NONE (NEGATIVE) /HPF Urine RBC NEGATIVE (0-5) Emmett/ul Urine Mucus (Auto) SLIGHT A (NEGATIVE) /HPF Ur Culture Indicated? NO Urine Glucose NEGATIVE (NEGATIVE) mg/dL Ethyl Alcohol < 10 (0-10) mg/dL 07/18/22 07/18/22 07/18/22 Range/Units 00:20 00:20 00:10 WBC 8.8 (4.0-10.5) x10^3/uL RBC 4.91 (4.1-5.6) x10^6/uL Hgb 14.8 (12.5-18.0) g/dL Hct 44.3 (42-50) % MCV 90.2 (78-100) fL MCH 30.1 (26-32) pg MCHC 33.4 (32-36) g/dL RDW 12.1 (11.5-14.0) % Plt Count 416 (150-450) x10^3/uL MPV 9.4 (7.5-11.0) fL Gran % 70.7 H (36.0-66.0) % Immature Gran % (Auto) 0.2 (0.00-0.4) % Nucleat RBC Rel Count 0.0 (0.00-0.1) % Eos # (Auto) 0.18 (0-0.5) x10^3/uL Immature Gran # (Auto) 0.02 (0.00-0.03) x10^3u/L Absolute Lymphs (auto) 1.78 (1.0-4.6) x10^3/uL Absolute Monos (auto) 0.51 (0.0-1.3) x10^3/uL Absolute Nucleated RBC 0.00 (0.00-0.01) x10^3u/L Lymphocytes % 20.1 L (24.0-44.0) % Monocytes % 5.8 (0.0-12.0) % Eosinophils % 2.0 (0.00-5.0) % Basophils % 1.2 (0.0-0.4) % Absolute Granulocytes 6.24 (1.4-6.9) x10^3/uL Basophils # 0.11 (0-0.4) x10^3/uL Sodium 136 L (137-145) mmol/L Potassium 3.3 L (3.5-5.1) mmol/L Chloride 101 (98-107) mmol/L Carbon Dioxide 29 (22-30) mmol/L Anion Gap 9.6 (5-15) MEQ/L BUN 18 (9-20) mg/dL Creatinine 0.72 (0.66-1.25) mg/dL Estimated GFR > 60.0 ML/MIN Glucose 130 H (74-106) mg/dL Lactic Acid 1.6 (0.4-2.0) Calcium 8.9 (8.4-10.2) mg/dL Total Bilirubin 1.70 H (0.2-1.3) mg/dL AST 50 (17-59) U/L ALT 19 (0-50) U/L Alkaline Phosphatase 69 (38-126) U/L Troponin I (0.000-0.034) ng/mL Serum Total Protein 7.6 (6.3-8.2) g/dL Albumin 4.5 (3.5-5.0) g/dL Lipase 59 (23-300) U/L Urinalys Dipstick Clnc Urine Color (YELLOW) Urine Appearance (CLEAR) Urine pH (5-6) Ur Specific [place] (1.005-1.025) POC Urine Protein Conf (Negative) Urine Ketones (NEGATIVE) Urine Nitrite (NEGATIVE) Urine Bilirubin (NEGATIVE) Urine Urobilinogen (0-1) mg/dL Urine Leukocytes (NEGATIVE) Urine WBC (Auto) (0-5) /HPF Urine RBC (Auto) (0-2) /HPF U Epithel Cells (Auto) (FEW) /HPF Urine Bacteria (Auto) (NEGATIVE) /HPF Urine RBC (0-5) Emmett/ul Urine Mucus (Auto) (NEGATIVE) /HPF Ur Culture Indicated? Urine Glucose (NEGATIVE) mg/dL Ethyl Alcohol (0-10) mg/dL - Progress Progress: improved Progress Note: 07/18/22 01:28 36-year-old is evaluated for abdominal pain/chest pain with vague other symptoms and switching from 1 topic to another. Patient EKG showed sinus rhythm with no acute ischemic changes and negative troponins. Normal white count, mildly low potassium of 3.3 and has chronic elevation of total bili and today is 1.7 which is around his baseline. No UTI. Urinalysis positive for THC and methamphetamine although patient denies it. I believe patient's symptom are partly drug-induced. He is counseled. Patient is not suicidal or homicidal. PD has come down and talk with the patient. He is being discharged with outpat ient follow-up. Counseled pt/family regarding: lab results, diagnosis, need for follow-up, rad results, smoking cessation - Departure Departure Disposition: Home Clinical Impression: Abdominal pain, GERD with esophagitis, Drug-induced psychotic disorder Condition: Stable Critical Care Time: No Referrals: DOCTOR,NO FAMILY [Primary Care Provider] - Follow up/PCP as directed DEONTE CHANG [ACTIVE STAFF] - Follow up/PCP as directed (1-2 days for re evaluation ) Instructions: Severe Abdominal Pain Additional Instructions: Do not smoke. Do not use drugs. Follow-up with primary care for reevaluation. Return to ER for worsening abdominal pain, chest pain or difficulty breathing. Continue with Protonix at home.
[2022-07-18 00:45] LABS: ALBUMIN 4.5 g/dL (3.5-5.0); ALKALINE PHOSPHATASE 69 U/L (38-126); ANION GAP 9.6 MEQ/L (5-15); BLOOD UREA NITROGEN 18 mg/dL (9-20); CHLORIDE 101 mmol/L (98-107); Calcium 8.9 mg/dL (8.4-10.2); Carbon Dioxide 29 mmol/L (22-30); Creatinine 1 0.72 mg/dL (0.66-1.25); EST GLOMERULAR FILTRATION RATE > 60.0 ML/MIN; Glucose 130 mg/dL (74-106); LIPASE 59 U/L (23-300); Potassium 3.3 mmol/L (3.5-5.1); SGOT/AST 50 U/L (17-59); SGPT/ALT 19 U/L (0-50); SODIUM 136 mmol/L (137-145); Total Protein 7.6 g/dL (6.3-8.2)
[2022-07-18 01:02] LABS: Mucus SLIGHT /HPF (NEGATIVE)
[2022-07-18 01:04] LABS: Appearance CLEAR (CLEAR); Bilirubin SMALL (NEGATIVE); Dipstick done @ ? MAIN LAB; Glucose NEGATIVE (NEGATIVE); Ketones TRACE (NEGATIVE); Nitrite NEGATIVE (NEGATIVE); Ph 5.5 (5-6); Protein,Urine Dip 30 (Negative); RBC NEGATIVE Ery/ul (0-5); Specific Gravity >=1.030 (1.005-1.025); Urobilinogen 2 mg/dL (0-1)
[2022-07-18 01:05] LABS: Urine Cultured Indicated? NO
[2022-07-18 01:14] LABS: Barbiturate,Urine NEGATIVE (NEGATIVE); Benzodiazepine,Urine NEGATIVE (NEGATIVE); Cocaine,Urine NEGATIVE (NEGATIVE); Methadone,Urine NEGATIVE (NEGATIVE); Opiate,Urine NEGATIVE (NEGATIVE); PCP,Urine NEGATIVE (NEGATIVE); THC,Urine POSITIVE (NEGATIVE)
[2022-07-18 01:27] VITALS: O2SAT 99
[2022-07-18 01:39] LABS: Amphetamine,Urine POSITIVE (NEGATIVE)
[2022-07-18 02:39] VITALS: BP 116/86; PULSE 75
--- NOTE | 2022-07-18 09:19 | XRAY ---
Indication: Chest pain. Comparison: None Portable apical lordotic chest hyperinflated and clear with a few tiny calcified granulomas. Heart not enlarged. Bony thorax intact.
== END 2022-07-18 02:38 | disposition home or self-care (01) ==
LOC: ED 23:28
DX: F15.959 Other stimulant use, unspecified with stimulant-induced psychotic disorder, unspecified (principal); R10.9 Unspecified abdominal pain; K21.00 Gastro-esophageal reflux disease with esophagitis, without bleeding; R07.9 Chest pain, unspecified; Z28.310 Unvaccinated for COVID-19; Z72.0 Tobacco use
CPT/HCPCS: 36000; 36415; 71045; 80053; 80307; 81015; 83605; 83690; 84484; 85025; 93005; 96374; 96375; 99284; J2405; G0480